=== PATIENT | female | born 1950 | race Caucasian/White ===

== ENCOUNTER 2016-09-01 10:11 | Inpatient (IN) | payer MEDICARE, BC ==
[2016-08-11 11:02] VITALS: BMI 42.0
[2016-08-11 11:31] VITALS: BP_SYST 140; RESP 20; TEMP 98.2
[~2016-09-01] VITALS: Ht 160 cm; Wt 107.5 kg
[2016-09-01] VITALS (33 sets, daily range): BP systolic 76–154; RESP 13–20; TEMP 97.2–99
[~2016-09-01 10:11] MED LIST: BACITRACIN 50,000 UNITS INJ IRRIG ONE
[2016-09-01] MEDS ORDERED: ROPIVACAINE 0.5% 134 MG, EPINEPHrine 1:1,000 0.2 MG, KETOROLAC INJ 30 MG, HYDROMORPHONE... SUBQ ONE ×4 (10:15)
[2016-09-01] MEDS ORDERED: CEFAZOLIN 2,000 MG in SODIUM CHLORIDE 0.9% 100 ML IV ONE (10:15)
[2016-09-01] MEDS ORDERED: LIDOCAINE 1% BUFFERED 1 ML SYR INTRADERM PRN (10:25)
[2016-09-01] MEDS ORDERED: GLYCOPYRROLATE 0.2 MG/ML VIAL IV ONE ×2 (10:25→10:27)
[2016-09-01] MEDS ORDERED: LACT RINGERS 1,000 ML IV SCH ×2 (10:25→15:00)
[2016-09-01] MEDS ORDERED: MIDAZOLAM 2 MG/2 ML INJ IV ONE ×2 (10:25→11:25)
[2016-09-01] MEDS ORDERED: PROPOFOL 20 ML PER ML IV ONE (10:27)
[2016-09-01] MEDS ORDERED: ROCURONIUM 50 MG VIAL IV ONE (10:27)
[2016-09-01] MEDS ORDERED: NEOSTIGMINE 10 MG/10 ML VIAL IV ONE (10:27)
[2016-09-01] MEDS ORDERED: ONDANSETRON 4 MG VIAL IV PUSH ONE (10:27)
[2016-09-01] MEDS ORDERED: ACETAMINOPHEN 1,000 MG/100 ML IV ONE (10:27)
[2016-09-01] MEDS ORDERED: LIDOCAINE 2% SYR 5 ML IV ONE (10:27)
[2016-09-01] MEDS ORDERED: ALBUTEROL HFA INH ONE (10:27)
[2016-09-01] MEDS ORDERED: FENTANYL 100 MCG/2 ML AMP IV ONE (10:27)
[2016-09-01] MEDS ORDERED: BUPIVACAINE 0.5% PF 10ML EPIDURAL ONE (10:43)
[2016-09-01] MEDS ORDERED: BUPIVACAINE 0.5% PF 30 ML EPIDURAL ONE (10:43)
[2016-09-01] MEDS ORDERED: MEPERIDINE 25 MG/ML IV ONE (11:25)
[2016-09-01] MEDS ORDERED: MORPHINE 4 MG/ML SYR IV PRN (14:50)
[2016-09-01] MEDS ORDERED: MEPERIDINE 25 MG/ML IV PRN (14:50)
[2016-09-01] MEDS ORDERED: ONDANSETRON 4 MG VIAL IV PRN ×2 (14:50→15:00)
[2016-09-01] MEDS ORDERED: OXYCODONE 5 MG TAB PO PRN (14:50)
[2016-09-01] MEDS ORDERED: DILAUDID 1 MG/ML AMP IV PRN ×2 (14:50→15:00)
[2016-09-01] MEDS ORDERED: MORPHINE 2 MG/ML SYR IV PRN ×2 (14:50→15:00)
[2016-09-01] MEDS ORDERED: DIPHENHYDRAMINE 25 MG CAP PO PRN (15:00)
[2016-09-01] MEDS ORDERED: TEMAZEPAM 15 MG CAP PO PRN (15:00)
[2016-09-01] MEDS ORDERED: ACETAMINOPHEN 325 MG TAB PO PRN (15:00)
[2016-09-01] MEDS: CEFAZOLIN 2,000 MG in SODIUM CHLORIDE 0.9% 100 ML IV SCH (18:10)
[2016-09-01] MEDS: SENNA 8.6 MG TAB PO SCH (21:41)
[2016-09-01] MEDS: PAROXETINE HCL 20 MG TAB PO SCH (21:41)
[2016-09-01] MEDS: DOCUSATE SOD 100 MG CAP PO SCH (21:41)
[2016-09-01] MEDS: KETOROLAC 30 MG/ML VIAL IV PRN (22:47)
[2016-09-02] MEDS: CEFAZOLIN 2,000 MG in SODIUM CHLORIDE 0.9% 100 ML IV SCH ×3 (00:05→12:29)
[2016-09-02] MEDS: KETOROLAC 30 MG/ML VIAL IV PRN (05:00)
[2016-09-02] MEDS: FONDAPARINUX 2.5 MG SYR SUBQ SCH (06:11)
[2016-09-02] MEDS ORDERED: SALINE FLUSH 10 ML FLUSH PRN (06:40)
[2016-09-02 07:51] VITALS: BP_SYST 93; RESP 18; TEMP 99.2
[2016-09-02] MEDS: DOCUSATE SOD 100 MG CAP PO SCH ×2 (08:38→20:05)
[2016-09-02] MEDS: SENNA 8.6 MG TAB PO SCH ×2 (08:38→20:05)
[2016-09-02] MEDS: SALINE FLUSH 10 ML FLUSH SCH ×2 (08:38→20:05)
[2016-09-02] MEDS: MAG HYDROX 30 ML UDC PO SCH (08:38)
[2016-09-02] MEDS: POLYETHYLENE GLYCOL 17 GM PACKET PO SCH (08:38)
[2016-09-02] MEDS: CHOLECALCIFEROL 1,000 UNITS TAB PO SCH (11:45)
[2016-09-02] MEDS: CYANOCOBA 500 MCG TAB PO SCH (11:45)
[2016-09-02 11:56] VITALS: BP_SYST 115; RESP 18; TEMP 99.3
[2016-09-02] MEDS ORDERED: FLEET ENEMA 132 ML BTL RECTAL PRN (15:35)
[2016-09-02] MEDS ORDERED: BISACODYL 10 MG SUPP RECTAL PRN (15:35)
[2016-09-02 15:36] VITALS: BP_SYST 98; RESP 20; TEMP 99.2
[2016-09-02 19:20] VITALS: BP_SYST 104; RESP 16; TEMP 99.6; Ht 160 cm; Wt 107.5 kg
[2016-09-02] MEDS: PAROXETINE HCL 20 MG TAB PO SCH ×2 (20:02→20:05)
[2016-09-02 22:50] VITALS: BP_SYST 114; RESP 16; TEMP 99.8
[2016-09-02 23:24] VITALS: BP_SYST 108
[2016-09-03] MEDS: KETOROLAC 15 MG/ML VIAL IV PRN ×2 (02:08→18:10)
[2016-09-03 02:51] VITALS: BP_SYST 113; RESP 16; TEMP 99.1
[2016-09-03] MEDS: SODIUM CHLORIDE 0.9% FLUSH BAG 500 ML IV SCH (03:44)
[2016-09-03] MEDS: FONDAPARINUX 2.5 MG SYR SUBQ SCH (05:46)
[2016-09-03 07:28] VITALS: BP_SYST 87; RESP 18; TEMP 97.1
[2016-09-03] MEDS: SALINE FLUSH 10 ML FLUSH SCH ×2 (07:32→20:57)
[2016-09-03] MEDS: POLYETHYLENE GLYCOL 17 GM PACKET PO SCH (09:28)
[2016-09-03] MEDS: MAG HYDROX 30 ML UDC PO SCH (09:29)
[2016-09-03] MEDS: DOCUSATE SOD 100 MG CAP PO SCH ×2 (09:30→20:49)
[2016-09-03] MEDS: SENNA 8.6 MG TAB PO SCH ×2 (09:30→20:49)
[2016-09-03] MEDS: CYANOCOBA 500 MCG TAB PO SCH (09:30)
[2016-09-03] MEDS: CHOLECALCIFEROL 1,000 UNITS TAB PO SCH (09:30)
[2016-09-03] MEDS ORDERED: ERGOCALCIFEROL 50,000 UNITS (1.25 MG) CAP PO SCH (09:46)
[2016-09-03] MEDS: FOLIC ACID 1 MG TAB PO SCH (11:27)
[2016-09-03] MEDS: CYANOCOBALAMIN 1000 MCG/ML VIAL IM SCH (11:27)
[2016-09-03 11:46] VITALS: BP_SYST 102; RESP 16; TEMP 98.3
[2016-09-03 15:59] VITALS: BP_SYST 101; RESP 16; TEMP 98.8
[2016-09-03 19:18] VITALS: BP_SYST 86; RESP 16; TEMP 99.5
[2016-09-03] MEDS: PAROXETINE HCL 20 MG TAB PO SCH ×2 (20:46→20:49)
[2016-09-03 22:56] VITALS: BP_SYST 106; RESP 16; TEMP 99.3
[2016-09-04] MEDS: KETOROLAC 15 MG/ML VIAL IV PRN (02:27)
[2016-09-04 03:19] VITALS: BP_SYST 104; RESP 18; TEMP 98.9
[2016-09-04] MEDS: SODIUM CHLORIDE 0.9% FLUSH BAG 500 ML IV SCH (05:50)
[2016-09-04] MEDS: FONDAPARINUX 2.5 MG SYR SUBQ SCH (06:08)
[2016-09-04] MEDS: SENNA 8.6 MG TAB PO SCH (07:44)
[2016-09-04] MEDS: DOCUSATE SOD 100 MG CAP PO SCH (07:44)
[2016-09-04] MEDS: POLYETHYLENE GLYCOL 17 GM PACKET PO SCH (07:44)
[2016-09-04] MEDS: FOLIC ACID 1 MG TAB PO SCH (07:45)
[2016-09-04] MEDS: CHOLECALCIFEROL 1,000 UNITS TAB PO SCH (07:45)
[2016-09-04] MEDS: CYANOCOBA 500 MCG TAB PO SCH (07:45)
[2016-09-04] MEDS: CYANOCOBALAMIN 1000 MCG/ML VIAL IM SCH (07:46)
[2016-09-04 08:04] VITALS: BP_SYST 115; RESP 16; TEMP 99.8
[2016-09-04] MEDS: MAG HYDROX 30 ML UDC PO SCH (09:11)
[2016-09-04] MEDS: SALINE FLUSH 10 ML FLUSH SCH (09:22)
[2016-09-04 10:05] VITALS: BP_SYST 115; RESP 16; TEMP 99.8
== END 2016-09-04 14:39 | DRG 470 ==
LOC: ENRESERVDT → ENRESERVTM → SDS 10:11 → ENPENDDIS 10:11 → 2NO 15:18
PROVIDERS: ADMIT Internal Medicine; ATTEND Internal Medicine
PROC: 3E0T3BZ Introduction of Anesthetic Agent into Peripheral Nerves and Plexi, Percutaneous Approach (ICD-10-PCS; 2016-09-01)
PROC: 0SRC0J9 Replacement of Right Knee Joint with Synthetic Substitute, Cemented, Open Approach (ICD-10-PCS; principal; 2016-09-01 11:20)
DX: M17.11 Unilateral primary osteoarthritis, right knee (principal); D62 Acute posthemorrhagic anemia; Z68.41 Body mass index [BMI] 40.0-44.9, adult; E66.9 Obesity, unspecified; F32.9 Major depressive disorder, single episode, unspecified; E78.5 Hyperlipidemia, unspecified; J30.2 Other seasonal allergic rhinitis; E53.8 Deficiency of other specified B group vitamins; E55.9 Vitamin D deficiency, unspecified
CPT/HCPCS: 80048; 80053; 82306; 82607; 82746; 83036; 83735; 84439; 84443; 85014; 85018; 85025; 86850; 86900; 86901; 94762; 94799

== ENCOUNTER 2016-09-04 14:14 | Inpatient (IN) | payer MEDICARE, BC ==
[~2016-09-04] VITALS: Ht 160 cm; Wt 107.5 kg
[2016-09-04] MEDS: ASPIRIN 81 MG CHEW TAB PO SCH (09:30)
[~2016-09-04 14:14] MED LIST changes: +ACETAMINOPHEN 325 MG TAB PO PRN; +ACETAMINOPHEN 650 MG SUPP RECTAL PRN; -BACITRACIN 50,000 UNITS INJ IRRIG ONE; +BISACODYL 10 MG SUPP RECTAL PRN; +FLEET ENEMA 132 ML BTL RECTAL PRN; +MAG HYDROX 30 ML UDC PO PRN; +PNEUMO VAC 25 MCG/0.5 ML VL IM.VACC ONE; +POLYETHYLENE GLYCOL 17 GM PACKET PO PRN
[2016-09-04 15:01] VITALS: BP_SYST 108; BP_SYST 112; RESP 18; TEMP 99.4
[2016-09-04] MEDS: PAROXETINE HCL 20 MG TAB PO SCH (20:14)
[2016-09-04] MEDS: SENNA 8.6 MG TAB PO SCH (20:14)
[2016-09-04] MEDS ORDERED: TUBERCULIN PPD 5 UNIT SYR ID.VACC ONE (21:00)
[2016-09-05 00:32] VITALS: BP_SYST 116; TEMP 98.7
[2016-09-05 00:33] VITALS: RESP 78
[2016-09-05] MEDS: FONDAPARINUX 2.5 MG SYR SUBQ SCH (06:13)
[2016-09-05] MEDS: ASPIRIN 81 MG CHEW TAB PO SCH (08:56)
[2016-09-05] MEDS: FOLIC ACID 1 MG TAB PO SCH (08:56)
[2016-09-05] MEDS: CYANOCOBA 500 MCG TAB PO SCH (08:57)
[2016-09-05] MEDS: SENNA 8.6 MG TAB PO SCH ×2 (08:57→20:28)
[2016-09-05] MEDS: CHOLECALCIFEROL 1,000 UNITS TAB PO SCH (08:57)
[2016-09-05] MEDS: POLYETHYLENE GLYCOL 17 GM PACKET PO SCH (08:59)
[2016-09-05] MEDS ORDERED: FONDAPARINUX 2.5 MG SYR SUBQ SCH (09:00)
[2016-09-05 13:48] VITALS: BP_SYST 118; RESP 18; TEMP 98.7
[2016-09-05 18:37] VITALS: BP_SYST 121; RESP 20; TEMP 98.5
[2016-09-05] MEDS: PAROXETINE HCL 20 MG TAB PO SCH (20:28)
[2016-09-05] MEDS: ALU/MAG/SIM 30 ML UDC PO PRN (21:18)
[2016-09-06 00:26] VITALS: RESP 20; TEMP 98.8
[2016-09-06] MEDS: FONDAPARINUX 2.5 MG SYR SUBQ SCH (06:05)
[2016-09-06] MEDS: POLYETHYLENE GLYCOL 17 GM PACKET PO SCH (09:00)
[2016-09-06 09:20] VITALS: BP_SYST 126; RESP 20; TEMP 97.9
[2016-09-06] MEDS: FOLIC ACID 1 MG TAB PO SCH (09:43)
[2016-09-06] MEDS: CHOLECALCIFEROL 1,000 UNITS TAB PO SCH (09:43)
[2016-09-06] MEDS: SENNA 8.6 MG TAB PO SCH ×2 (09:43→20:43)
[2016-09-06] MEDS: ASPIRIN 81 MG CHEW TAB PO SCH (09:43)
[2016-09-06] MEDS: CYANOCOBA 500 MCG TAB PO SCH (09:43)
[2016-09-06 19:47] VITALS: BP_SYST 132; RESP 20; TEMP 97.7
[2016-09-06] MEDS: PAROXETINE HCL 20 MG TAB PO SCH (20:43)
[2016-09-06] MEDS ORDERED: SKIN TEST: READ AND RECORD XX SCH (21:00)
[2016-09-07 02:38] VITALS: BP_SYST 123; RESP 18; TEMP 99.6
[2016-09-07] MEDS: FONDAPARINUX 2.5 MG SYR SUBQ SCH (06:13)
[2016-09-07] MEDS: CHOLECALCIFEROL 1,000 UNITS TAB PO SCH (08:17)
[2016-09-07] MEDS: ASPIRIN 81 MG CHEW TAB PO SCH (08:17)
[2016-09-07] MEDS: POLYETHYLENE GLYCOL 17 GM PACKET PO SCH (08:17)
[2016-09-07] MEDS: CYANOCOBA 500 MCG TAB PO SCH (08:17)
[2016-09-07] MEDS: FOLIC ACID 1 MG TAB PO SCH (08:17)
[2016-09-07] MEDS: SENNA 8.6 MG TAB PO SCH ×2 (08:17→20:57)
[2016-09-07 10:35] VITALS: BP_SYST 120; RESP 20; TEMP 100; Ht 160 cm; Wt 107.5 kg
[2016-09-07 10:37] VITALS: BP_SYST 131; RESP 20; TEMP 98.7
[2016-09-07 15:50] VITALS: BP_SYST 125; RESP 18; TEMP 98.2
[2016-09-07] MEDS: PAROXETINE HCL 20 MG TAB PO SCH (20:56)
[2016-09-08 02:01] VITALS: BP_SYST 124; RESP 20; TEMP 99.1
[2016-09-08] MEDS: FONDAPARINUX 2.5 MG SYR SUBQ SCH (06:23)
[2016-09-08] MEDS: CYANOCOBA 500 MCG TAB PO SCH (08:09)
[2016-09-08] MEDS: POLYETHYLENE GLYCOL 17 GM PACKET PO SCH (08:10)
[2016-09-08] MEDS: ASPIRIN 81 MG CHEW TAB PO SCH (08:10)
[2016-09-08] MEDS: SENNA 8.6 MG TAB PO SCH ×2 (08:10→20:21)
[2016-09-08] MEDS: CHOLECALCIFEROL 1,000 UNITS TAB PO SCH (08:10)
[2016-09-08] MEDS: FOLIC ACID 1 MG TAB PO SCH (08:10)
[2016-09-08 11:02] VITALS: BP_SYST 137; RESP 20; TEMP 97.7
[2016-09-08] MEDS: PAROXETINE HCL 20 MG TAB PO SCH (20:21)
[2016-09-08] MEDS: ALU/MAG/SIM 30 ML UDC PO PRN (21:22)
[2016-09-08 21:46] VITALS: BP_SYST 128; RESP 18; TEMP 98
[2016-09-09 03:42] VITALS: BP_SYST 126; RESP 18; TEMP 98.7
[2016-09-09] MEDS: FONDAPARINUX 2.5 MG SYR SUBQ SCH (06:02)
[2016-09-09] MEDS: CYANOCOBA 500 MCG TAB PO SCH (08:33)
[2016-09-09] MEDS: ASPIRIN 81 MG CHEW TAB PO SCH (08:33)
[2016-09-09] MEDS: SENNA 8.6 MG TAB PO SCH ×2 (08:33→20:27)
[2016-09-09] MEDS: POLYETHYLENE GLYCOL 17 GM PACKET PO SCH (08:33)
[2016-09-09] MEDS: FOLIC ACID 1 MG TAB PO SCH (08:33)
[2016-09-09 11:26] VITALS: BP_SYST 105; RESP 18; TEMP 98.2
[2016-09-09 15:27] VITALS: BP_SYST 114; RESP 18; TEMP 98.5
[2016-09-09] MEDS: PAROXETINE HCL 20 MG TAB PO SCH (20:27)
[2016-09-10 03:49] VITALS: RESP 18; TEMP 98.3
[2016-09-10 03:50] VITALS: BP_SYST 120
[2016-09-10] MEDS: FONDAPARINUX 2.5 MG SYR SUBQ SCH (05:45)
[2016-09-10] MEDS ORDERED: ERGOCALCIFEROL 50,000 UNITS (1.25 MG) CAP PO SCH (09:00)
[2016-09-10] MEDS: ASPIRIN 81 MG CHEW TAB PO SCH (09:38)
[2016-09-10] MEDS: SENNA 8.6 MG TAB PO SCH ×2 (09:38→20:21)
[2016-09-10] MEDS: CYANOCOBA 500 MCG TAB PO SCH (09:38)
[2016-09-10] MEDS: FOLIC ACID 1 MG TAB PO SCH (09:38)
[2016-09-10] MEDS: POLYETHYLENE GLYCOL 17 GM PACKET PO SCH (09:38)
[2016-09-10 10:42] VITALS: BP_SYST 126; RESP 18; TEMP 97.9
[2016-09-10 15:52] VITALS: BP_SYST 123; RESP 20; TEMP 98.2
[2016-09-10] MEDS: PAROXETINE HCL 20 MG TAB PO SCH (20:21)
[2016-09-10] MEDS: ALU/MAG/SIM 30 ML UDC PO PRN (20:52)
[2016-09-11 02:22] VITALS: BP_SYST 129; TEMP 98.3
[2016-09-11] MEDS: FONDAPARINUX 2.5 MG SYR SUBQ SCH (06:21)
[2016-09-11] MEDS: POLYETHYLENE GLYCOL 17 GM PACKET PO SCH (09:00)
[2016-09-11] MEDS: SENNA 8.6 MG TAB PO SCH ×2 (09:00→20:17)
[2016-09-11] MEDS: CYANOCOBA 500 MCG TAB PO SCH (09:03)
[2016-09-11] MEDS: FOLIC ACID 1 MG TAB PO SCH (09:03)
[2016-09-11] MEDS: ASPIRIN 81 MG CHEW TAB PO SCH (09:03)
[2016-09-11 09:25] VITALS: BP_SYST 136; RESP 18; TEMP 98.2
[2016-09-11 15:55] VITALS: BP_SYST 136; RESP 20; TEMP 98.4
[2016-09-11] MEDS: PAROXETINE HCL 20 MG TAB PO SCH (20:17)
[2016-09-11] MEDS ORDERED: TUBERCULIN PPD 5 UNIT SYR ID.VACC ONE (21:00)
[2016-09-12 00:06] VITALS: BP_SYST 124; RESP 20; TEMP 98.3
[2016-09-12] MEDS: FONDAPARINUX 2.5 MG SYR SUBQ SCH (05:49)
[2016-09-12] MEDS: POLYETHYLENE GLYCOL 17 GM PACKET PO SCH (08:58)
[2016-09-12] MEDS: SENNA 8.6 MG TAB PO SCH (09:01)
[2016-09-12] MEDS: CYANOCOBA 500 MCG TAB PO SCH (09:01)
[2016-09-12] MEDS: FOLIC ACID 1 MG TAB PO SCH (09:01)
[2016-09-12] MEDS: ASPIRIN 81 MG CHEW TAB PO SCH ×2 (09:01→09:04)
[2016-09-12 09:52] VITALS: BP_SYST 126; RESP 16; TEMP 98.2
[2016-09-12 09:53] VITALS: RESP 16; TEMP 98.2
[2016-09-12 12:14] VITALS: BP_SYST 126; RESP 16; TEMP 98.2
== END 2016-09-12 13:00 | disposition home or self-care (01) | DRG 560 ==
LOC: NF 14:54
PROVIDERS: ADMIT Internal Medicine; ATTEND Internal Medicine
DX: Z47.1 Aftercare following joint replacement surgery (principal); D62 Acute posthemorrhagic anemia; Z96.651 Presence of right artificial knee joint; R26.2 Difficulty in walking, not elsewhere classified; F32.9 Major depressive disorder, single episode, unspecified; M19.90 Unspecified osteoarthritis, unspecified site; D51.9 Vitamin B12 deficiency anemia, unspecified; E55.9 Vitamin D deficiency, unspecified
CPT/HCPCS: 36415; 80048; 85025; 86580